=== PATIENT | male | born 1970 | race Caucasian/White ===

== ENCOUNTER 2017-01-26 08:57 | Emergency (ER) | payer BC ==
[~2017-01-26] VITALS: Ht 180.3 cm; Wt 81.6 kg
[2017-01-26] MEDS ORDERED: CELE40TA PO (09:08)
[2017-01-26] MEDS ORDERED: CLON1TAB PO (09:08)
[2017-01-26] MEDS ORDERED: LISI10TA4 PO (09:08)
[2017-01-26] MEDS ORDERED: KETOROLAC 30 MG/ML VIAL (J1885) IV ONE (09:30)
[2017-01-26 09:46] LABS: BASO % 0.2 % (0.0-1.0); EOS % 0.6 % (0.0-3.0); LARGE UNSTAINED CELL # 0.1 K/mm3 (0.0-0.4); LARGE UNSTAINED CELL % 0.9 % (0.0-4.0); LYMPH # 1.1 K/mm3 (1.5-4.5); LYMPH % 12.6 % (24.0-44.0); MEAN CORPUSCULAR HEMOGLOBIN 30.1 pg (27.0-33.0); MEAN CORPUSCULAR HGB CONC 33.4 g/dl (32.0-36.5); MONO # 0.6 K/mm3 (0.0-0.8); MONO % 6.9 % (0.0-5.0); NEUTROPHILS # 6.6 K/mm3 (1.8-7.7); NEUTROPHILS % 78.8 % (36.0-66.0); PLATELET COUNT, AUTOMATED 249 k/mm3 (150-450); RED CELL DISTRIBUTION WIDTH 12.9 % (11.5-14.5); WHITE BLOOD COUNT 8.4 K/mm3 (4.0-10.0)
[2017-01-26 10:11] LABS: ALBUMIN 4.5 GM/DL (3.2-5.2); ALBUMIN/GLOBULIN RATIO 1.25 (1.00-1.93); ALKALINE PHOSPHATASE 59 U/L (45-117); ALT/SGPT 26 U/L (12-78); ANION GAP 4 MEQ/L (8-16); AST/SGOT 11 U/L (15-37); BILIRUBIN,DIRECT 0.2 MG/DL (0.0-0.2); BILIRUBIN,TOTAL 1.5 MG/DL (0.2-1.0); BLOOD UREA NITROGEN 21 MG/DL (7-18); CALCIUM LEVEL 9.5 MG/DL (8.5-10.1); CARBON DIOXIDE LEVEL 31 MEQ/L (21-32); CHLORIDE LEVEL 102 MEQ/L (98-107); CREATININE FOR GFR 1.12 MG/DL (0.70-1.30); GLOMERULAR FILTRATION RATE > 60.0 (>60); GLUCOSE, FASTING 107 MG/DL (70-105); SODIUM LEVEL 137 MEQ/L (136-145); TOTAL PROTEIN 8.1 GM/DL (6.4-8.2)
--- NOTE | 2017-01-26 11:05 | REP ---
ABDOMINAL SERIES: Supine and erect views of the abdomen demonstrate no free air and no compelling evidence for bowel obstruction. No significantly dilated small bowel loops are seen. There are multiple phleboliths in the pelvis. There are mild degenerative changes of the spine. An accompanying view of the chest demonstrates no acute infiltrate. Cardiomediastinal silhouette appears unremarkable. IMPRESSION: Negative abdominal series. Signed by Yariel Lopes MD 01/26/2017 12:16 P
--- NOTE | 2017-01-26 11:51 | REP ---
CT ABDOMEN AND PELVIS WITHOUT ORAL OR IV CONTRAST: CT abdomen and pelvis is performed without IV contrast. Sagittal and coronal reconstruction images are performed. Visualized lung bases demonstrate mild fibroatelectatic changes. Liver, gallbladder, spleen, adrenals, pancreas and kidneys are grossly unremarkable in appearance. There is no evidence of renal, ureteral or bladder calculus. There is no hydroureteronephrosis. There is no abdominal aortic aneurysm. There is no adenopathy. There is no free air or free fluid. There is no bowel wall thickening. There is no pelvic mass. The urinary bladder is mildly distended and grossly unremarkable. There is a small left inguinal hernia containing fat. IMPRESSION: No evidence of renal or ureteral calculus and no evidence of hydroureteronephrosis. Small left inguinal hernia containing fat. Signed by Yariel Lopes MD 01/26/2017 12:17 P
[2017-01-26 12:43] VITALS: BP 120/65
[2017-01-26] MEDS ORDERED: NAPR500T PO (12:51)
== END 2017-01-26 13:13 | disposition home or self-care (01) ==
LOC: M ED 09:36
DX: M79.1 Myalgia (principal); R10.9 Unspecified abdominal pain; I10 Essential (primary) hypertension; F32.9 Major depressive disorder, single episode, unspecified; F41.9 Anxiety disorder, unspecified; Z79.899 Other long term (current) drug therapy
CPT/HCPCS: 74022; 74176; 80048; 80076; 81001; 83690; 85025; 85379; 93041; 96374; 99285; J1885

== ENCOUNTER 2019-09-21 08:55 | Outpatient (RCR) | payer BC ==
[~2019-09-21 08:55] MED LIST: CELE40TA PO; CLON1TAB8 PO; LISI10TA4 PO; NAPR-837 PO
== END 2019-09-22 ==
LOC: M PT 08:55
PROVIDERS: ATTEND Dermatology
DX: L40.9 Psoriasis, unspecified (principal)

== ENCOUNTER 2019-09-24 13:03 | Outpatient (RCR) | payer BC | END 2019-10-23 | LOC: M PT 13:03 | PROVIDERS: ATTEND Dermatology | DX: L40.9 Psoriasis, unspecified (principal) ==

== ENCOUNTER → 2019-11-23 | Outpatient (RCR) | payer BC | LOC: M PT 11-07 13:16 | PROVIDERS: ATTEND Dermatology | DX: L40.9 Psoriasis, unspecified (principal) ==

== ENCOUNTER 2019-12-21 11:45 | Outpatient (RCR) | payer BC | END 2019-12-22 | LOC: M PT 11:45 | PROVIDERS: ATTEND Dermatology | DX: L40.9 Psoriasis, unspecified (principal) ==

== ENCOUNTER 2019-12-31 11:45 | Outpatient (RCR) | payer BC | END 2020-01-22 | LOC: M PT 11:45 | PROVIDERS: ATTEND Dermatology | DX: L40.9 Psoriasis, unspecified (principal) ==

== ENCOUNTER → 2021-12-07 | Outpatient (CLI) | payer BC ==
[~2021-12-07] MED LIST changes: +LISI10TA22 PO; -LISI10TA4 PO
== END ==
LOC: M RAD 07:03
PROVIDERS: ATTEND Physician Assistant
DX: R10.9 Unspecified abdominal pain (principal)